=== PATIENT | female | born 1980 | race Caucasian/White ===

== ENCOUNTER 2018-07-30 03:10 | Emergency (ER) | payer MEDICAID, SELFPAY ==
[~2018-07-30] VITALS: Ht 167.6 cm; Wt 139.4 kg
[2018-07-30 03:53] LABS: BASOPHILS # (AUTO) 0.08 x10^3/uL (0-0.1); BASOPHILS % (AUTO) 1 % (0-1); EOSINOPHILS # (AUTO) 0.06 x10^3/uL (0-0.4); EOSINOPHILS % (AUTO) 1 % (1-7); LYMPHOCYTES # (AUTO) 3.34 x10^3/uL (1-3.4); LYMPHOCYTES % (AUTO) 28 % (22-44); MD NO; MEAN CORPUSCULAR HEMOGLOBIN 30.3 pg (27.0-34.8); MEAN CORPUSCULAR HGB CONC 33.7 g/dL (32.4-35.8); MEAN CORPUSCULAR VOLUME 89.9 fL (80-100); MEAN PLATELET VOLUME 7.9 fL (7.4-10.4); MONOCYTES # (AUTO) 0.96 x10^3/uL (0.2-0.8); MONOCYTES % (AUTO) 8 % (2-9); NEUTROPHILS % (AUTO) 63 % (42-75); PLATELET COUNT 358 x10^3/uL (130-400); RED BLOOD COUNT 4.07 x10^6/uL (3.82-5.3); RED CELL DISTRIBUTION WIDTH 13.9 % (9.6-15.2)
[2018-07-30] MEDS ORDERED: CEPHALEXIN 500 MG CAPSULE ONE (03:58)
[2018-07-30] MEDS ORDERED: SULFAMETH./TRIMETHOPRIM DS 800MG/160MG TABLET ONE (03:59)
[2018-07-30] MEDS ORDERED: CEPHALEXIN 500 MG CAPSULE PO ONE (04:00)
[2018-07-30] MEDS ORDERED: SULFAMETH./TRIMETHOPRIM DS 800MG/160MG TABLET PO ONE (04:00)
[2018-07-30 04:03] LABS: ALANINE AMINOTRANSFERASE 20 U/L (12-78); ALBUMIN 3.2 g/dL (3.4-5.0); ANION GAP 5 mmol/L (5-15); CALCIUM 8.8 mg/dL (8.5-10.1); CHLORIDE 103 mmol/L (98-107)
[2018-07-30 04:05] LABS: ALKALINE PHOSPHATASE 71 U/L (45-117); BILIRUBIN,TOTAL 0.3 mg/dL (0.2-1.0); TOTAL PROTEIN 7.4 g/dL (6.4-8.2)
[2018-07-30] MEDS ORDERED: POTASSIUM CHLORIDE 20 MEQ TAB.ER.PRT PO ONE ×2 (04:30)
[2018-07-30] MEDS ORDERED: POTASSIUM CHLORIDE 20 MEQ TAB.ER.PRT ONE (04:32)
[2018-07-30 04:36] VITALS: BP 143/108
== END 2018-07-30 04:48 | disposition home or self-care (01) ==
LOC: ED 04:40
DX: L03.115 Cellulitis of right lower limb (principal); Z90.89 Acquired absence of other organs; Z90.49 Acquired absence of other specified parts of digestive tract
CPT/HCPCS: 36415; 80053; 85025; 99285

== ENCOUNTER 2020-03-21 12:24 | Emergency (ER) | payer SELFPAY ==
[~2020-03-21] VITALS: Ht 167.6 cm; Wt 144.1 kg
[2020-03-21] MEDS ORDERED: ACETAMINOPHEN 325 MG TABLET ONE (12:51)
[2020-03-21] MEDS ORDERED: KETOROLAC 30 MG/1 ML ONE (12:51)
[2020-03-21] MEDS ORDERED: DEXAMETHASONE 4 MG TABLET ONE (12:51)
--- NOTE | 2020-03-21 12:59 | NUR ---
MEDS ADMIN PER JAN. LAB AT BEDSIDE.
[2020-03-21] MEDS ORDERED: KETOROLAC 30 MG/1 ML IM ONE (13:00)
[2020-03-21] MEDS ORDERED: ACETAMINOPHEN 325 MG TABLET PO ONE (13:00)
[2020-03-21] MEDS ORDERED: DEXAMETHASONE 4 MG TABLET PO ONE (13:00)
[2020-03-21 13:13] LABS: MEAN CORPUSCULAR HEMOGLOBIN 29.4 pg (27.0-34.8); MEAN CORPUSCULAR HGB CONC 33.1 g/dL (32.4-35.8); MEAN CORPUSCULAR VOLUME 88.8 fL (80-100); MEAN PLATELET VOLUME 8.5 fL (7.4-10.4); PLATELET COUNT 310 x10^3/uL (130-400); RED BLOOD COUNT 4.72 x10^6/uL (3.82-5.3)
[2020-03-21 13:21] LABS: ALBUMIN 2.6 g/dL (3.4-5.0); ANION GAP 6 mmol/L (5-15); CALCIUM 9.1 mg/dL (8.5-10.1); CHLORIDE 97 mmol/L (98-107); CREATININE 1.41 mg/dL (0.55-1.02)
[2020-03-21 13:30] LABS: BASOPHILS # (AUTO) 0.08 x10^3/uL (0-0.1); BASOPHILS % (AUTO) 1 % (0-1); EOSINOPHILS # (AUTO) 0.01 x10^3/uL (0-0.4); EOSINOPHILS % (AUTO) 0 % (1-7); LYMPHOCYTES # (AUTO) 1.93 x10^3/uL (1-3.4); LYMPHOCYTES % (AUTO) 11 % (22-44); MD SCAN; MONOCYTES # (AUTO) 1.45 x10^3/uL (0.2-0.8); MONOCYTES % (AUTO) 8 % (2-9); NEUTROPHILS # (AUTO) 13.64 x10^3/uL (1.8-6.8); NEUTROPHILS % (AUTO) 80 % (42-75)
[2020-03-21 13:35] VITALS: BP 129/73
--- NOTE | 2020-03-21 13:35 | NUR ---
PT SLEEPING ON GURNEY. RESP EVEN AND UNLABORED. AISLINN.
--- NOTE | 2020-03-21 13:36 | NUR ---
ALL RESULTS ARE BACK AT THIS TIME. CHART UP FOR RECHECK.
== END 2020-03-21 14:00 | disposition home or self-care (01) ==
LOC: ED 12:46
DX: J02.0 Streptococcal pharyngitis (principal); R73.9 Hyperglycemia, unspecified; H92.09 Otalgia, unspecified ear; Z90.49 Acquired absence of other specified parts of digestive tract
CPT/HCPCS: 36415; 80048; 82040; 85025; 87880; 96372; 99283; J1885